=== PATIENT | female | born 1995 | race Caucasian/White ===

== ENCOUNTER 2022-05-19 08:51 | Inpatient (IN) | payer MEDICAID ==
[~2022-05-19] VITALS: Ht 172.7 cm; Wt 85.0 kg
[2022-05-19 09:33] LABS: HEMATOCRIT 38.7 % (36-46); HEMOGLOBIN 13.6 g/dL (12.0-16.0); LYMPHOCYTES # (AUTO) 1.5 K/uL (1.0-4.8); LYMPHOCYTES % (AUTO) 24.9 % (22.0-44.0); MEAN CORPUSCULAR VOLUME 89 fL (80-100); MONOCYTES # (AUTO) 0.4 K/uL (0.1-1.0); MONOCYTES % (AUTO) 7.1 % (2.0-9.0); NEUTROPHILS # (AUTO) 3.8 K/uL (1.8-7.7); PLATELET COUNT (AUTO) 231 K/uL (150-450); RED BLOOD CELL COUNT(AUTO) 4.37 MIL/uL (4.00-5.20); RED CELL DISTRIBUTION WIDTH 12.9 % (11.5-14.5)
[2022-05-19 09:45] LABS: ANION GAP 6 mmol/L (8-16); CALCIUM, TOTAL 9.7 mg/dL (8.8-10.5); CARBON DIOXIDE 28 mmol/L (22-29); CHLORIDE 104 mmol/L (98-107); CREATININE 0.67 mg/dL (0.60-1.30); GLUCOSE,RANDOM 94 mg/dL (70-110); SODIUM SERUM 138 mmol/L (136-145); UREA NITROGEN, BLOOD 6 mg/dL (7-18)
[2022-05-19 09:49] LABS: GLOMERULAR FILTR. RATE CALC > 60 mL/min (>60)
[2022-05-19 09:50] LABS: ALANINE AMINOTRANSFERASE 40 U/L (12-78); ALKALINE PHOSPHATASE 70 U/L (46-116); ASPARTATE AMINOTRANSFERASE 17 U/L (15-37); BILIRUBIN,TOTAL 1.4 mg/dL (0.1-1.0); TOTAL PROTEIN, SERUM 7.9 g/dL (6.4-8.2)
[2022-05-19 11:27] LABS: COVID AG,FIA SOURCE NASAL SWAB
[2022-05-19] MEDS ORDERED: IBUPROFEN 600 MG TABLET PO ONE (11:45)
[2022-05-19] MEDS ORDERED: ZOLPIDEM TARTRATE 10 MG TABLET PO PRN (14:15)
[2022-05-19] MEDS ORDERED: HALOPERIDOL 5 MG TABLET PO PRN (14:15)
[2022-05-19] MEDS: LORazepam 2 MG TABLET PO PRN (14:52)
[2022-05-19 14:55] VITALS: BP 138/84
[2022-05-19 18:05] VITALS: BP 122/78
[2022-05-19] MEDS ORDERED: PNEUMOCOCCAL VACCINE POLYVALENT 0.5 ML VIAL [PPSV23] IM. ONE (18:30)
[2022-05-19] MEDS ORDERED: BENZOCAINE/MENTHOL LOZENGE PO PRN (20:15)
[2022-05-19] MEDS ORDERED: ALBUTEROL SULFATE HFA 90 MCG/PUFF 8 GM INHALER IH PRN (20:15)
[2022-05-19] MEDS ORDERED: LOPERAMIDE HCL 2 MG CAPSULE PO PRN (20:15)
[2022-05-19] MEDS ORDERED: MAG HYDROX/AL HYDROX/SIMETH ES 30 ML SUSPENSION UDCUP PO PRN (20:15)
[2022-05-19] MEDS ORDERED: MAGNESIUM HYDROXIDE SUSPENSION 30 ML UDCUP PO PRN (20:15)
[2022-05-19] MEDS ORDERED: ONDANSETRON HCL 4 MG TABLET PO PRN (20:15)
[2022-05-19] MEDS ORDERED: PETROLATUM,WHITE 28 GM JELLY TP PRN (20:15)
[2022-05-19] MEDS ORDERED: ACETAMINOPHEN 325 MG TABLET PO PRN (20:15)
[2022-05-19] MEDS ORDERED: CloNIDine HCL 0.1 MG TABLET PO PRN (20:15)
[2022-05-19] MEDS ORDERED: BACITRACIN 28 GM OINTMENT TP PRN (20:15)
[2022-05-20 07:24] LABS: APPEARANCE,URINE CLEAR (CLEAR); BILIRUBIN,URINE NEGATIVE (NEGATIVE); GLUCOSE, URINE (UA) NEGATIVE (NEGATIVE); KETONES,URINE NEGATIVE (NEGATIVE); LEUKOCYTE ESTERASE ,URINE TRACE (NEGATIVE); NITRATE,URINE NEGATIVE (NEGATIVE); OCCULT BLOOD,URINE SMALL (NEGATIVE); PROTEIN,URINE NEGATIVE (NEGATIVE); SPECIFIC GRAVITIY, URINE 1.013 (1.003-1.030); UROBILINOGEN,URINE <=1.0 mg/dL (<=1.0)
[2022-05-20 07:25] LABS: AMPHET/METH SCREEN,URINE NEGATIVE (NEGATIVE); BARBITURATE SCREEN, URINE NEGATIVE (NEGATIVE); BENZODIAZEPINES SCREEN,URINE NEGATIVE (NEGATIVE); CANNABINOID SCREEN,URINE NEGATIVE (NEGATIVE); COCAINE SCREEN,URINE NEGATIVE (NEGATIVE); METHADONE SCREEN, URINE NEGATIVE (NEGATIVE); OPIATE SCREEN,URINE NEGATIVE (NEGATIVE)
[2022-05-20 07:41] LABS: PHENCYCLIDINE SCREEN,URINE NEGATIVE (NEGATIVE)
[2022-05-20 07:46] LABS: RBC,URINE 0-2 /HPF (0-2); WBC,URINE 0-2 /HPF (0-5)
[2022-05-20 07:47] LABS: BACTERIA,URINE None Seen /HPF (None Seen)
[2022-05-20 07:48] LABS: SQUAMOUS EPITHELIAL CELL,UR Few /LPF (None Seen)
[2022-05-20 08:34] VITALS: BP 121/83
[2022-05-20] MEDS: DOCUSATE SODIUM 100 MG CAPSULE PO SCH (09:00)
[2022-05-20] MEDS: OMEPRAZOLE 20 MG CAPSULE PO SCH (09:00)
[2022-05-20 16:06] VITALS: BP 128/81
[2022-05-20] MEDS: LORazepam 2 MG TABLET PO PRN (19:55)
[2022-05-20 20:10] VITALS: BP 129/70
[2022-05-20] MEDS: MECLIZINE HCL 25 MG TABLET PO SCH (23:00)
[2022-05-21 00:13] VITALS: BP 127/76
[2022-05-21 08:44] VITALS: BP 137/82
[2022-05-21] MEDS: OMEPRAZOLE 20 MG CAPSULE PO SCH (09:00)
[2022-05-21] MEDS: DOCUSATE SODIUM 100 MG CAPSULE PO SCH (09:00)
[2022-05-21 09:05] LABS: HEMOGLOBIN A1C 4.8 % (3.8-5.6)
[2022-05-21 09:11] LABS: CHOL/HDL RATIO 2.3 (3.9-5.7); THYROID STIMULATING HORMONE 0.76 uIU/mL (0.36-3.74)
[2022-05-21] MEDS: IBUPROFEN 600 MG TABLET PO PRN (13:50)
[2022-05-21 16:15] VITALS: BP 129/80
[2022-05-21] MEDS: MECLIZINE HCL 25 MG TABLET PO SCH (20:08)
[2022-05-21 20:27] VITALS: BP 122/77
[2022-05-21] MEDS ORDERED: MECLIZINE HCL 25 MG TABLET PO SCH (21:00)
[2022-05-22 00:03] VITALS: BP 134/90
[2022-05-22] MEDS: OMEPRAZOLE 20 MG CAPSULE PO SCH (09:00)
[2022-05-22] MEDS: DOCUSATE SODIUM 100 MG CAPSULE PO SCH (09:00)
[2022-05-22 09:12] VITALS: BP 129/82
[2022-05-22] MEDS: LORazepam 2 MG TABLET PO PRN (09:19)
[2022-05-22] MEDS: RisperiDONE 1 MG TABLET PO SCH ×2 (09:19→16:17)
[2022-05-22 16:10] VITALS: BP 136/81
[2022-05-22] MEDS: IBUPROFEN 600 MG TABLET PO PRN (16:17)
[2022-05-22] MEDS: MECLIZINE HCL 25 MG TABLET PO SCH (20:19)
[2022-05-22] MEDS ORDERED: LORazepam 2 MG/ML VIAL IM ONE (23:15)
[2022-05-22] MEDS ORDERED: HALOPERIDOL LACTATE 5 MG/ML VIAL IM ONE (23:15)
[2022-05-22] MEDS ORDERED: DiphenhydrAMINE HCL 50 MG/ML VIAL IM ONE (23:15)
[2022-05-23 08:23] VITALS: BP 119/71
[2022-05-23] MEDS: DIVALPROEX SODIUM 500 MG DR TABLET PO SCH ×2 (08:55→20:16)
[2022-05-23] MEDS: LITHIUM CARBONATE 300 MG CAPSULE PO SCH ×2 (08:55→20:16)
[2022-05-23] MEDS: RisperiDONE 2 MG TABLET PO SCH ×2 (08:55→16:18)
[2022-05-23] MEDS: OMEPRAZOLE 20 MG CAPSULE PO SCH (09:00)
[2022-05-23] MEDS: DOCUSATE SODIUM 100 MG CAPSULE PO SCH (09:00)
[2022-05-23 16:03] VITALS: BP 110/70
[2022-05-23 20:43] VITALS: BP 119/73
[2022-05-24] MEDS: IBUPROFEN 600 MG TABLET PO PRN (08:00)
[2022-05-24] MEDS: LITHIUM CARBONATE 300 MG CAPSULE PO SCH ×2 (08:00→08:54)
[2022-05-24 08:16] VITALS: BP 118/76
[2022-05-24] MEDS: DIVALPROEX SODIUM 500 MG DR TABLET PO SCH ×2 (08:54→21:21)
[2022-05-24] MEDS: DOCUSATE SODIUM 100 MG CAPSULE PO SCH (09:00)
[2022-05-24] MEDS: OMEPRAZOLE 20 MG CAPSULE PO SCH (09:00)
[2022-05-24] MEDS: RisperiDONE 2 MG TABLET PO SCH ×2 (09:03→16:52)
[2022-05-24 16:09] VITALS: BP 143/89
[2022-05-24] MEDS: LORazepam 2 MG TABLET PO PRN (19:46)
[2022-05-25 06:34] LABS: COVID AG,FIA SOURCE NASAL SWAB
[2022-05-25] MEDS: LITHIUM CARBONATE 300 MG CAPSULE PO SCH (07:57)
[2022-05-25] MEDS: DOCUSATE SODIUM 100 MG CAPSULE PO SCH (07:57)
[2022-05-25] MEDS: OMEPRAZOLE 20 MG CAPSULE PO SCH (07:57)
[2022-05-25] MEDS: RisperiDONE 2 MG TABLET PO SCH ×2 (07:57→17:00)
[2022-05-25] MEDS: DIVALPROEX SODIUM 500 MG DR TABLET PO SCH (07:57)
[2022-05-25 08:37] VITALS: BP 128/82
[2022-05-25] MEDS: IBUPROFEN 600 MG TABLET PO PRN (13:39)
[2022-05-25 16:13] VITALS: BP 105/67
[2022-05-25] MEDS ORDERED: LITH300C3 PO (18:46)
[2022-05-25] MEDS ORDERED: RISP2TAB86 PO (18:46)
[2022-05-25] MEDS ORDERED: DIVA-112 PO (18:46)
== END 2022-05-25 19:30 | disposition home or self-care (01) | DRG 750 ==
LOC: EMS 08:53 → 3EC 11:55
PROVIDERS: ADMIT Psychiatry & Neurology Psychiatry; ATTEND Psychiatry & Neurology Psychiatry
DX: F25.9 Schizoaffective disorder, unspecified (principal); R45.851 Suicidal ideations; F32.A Depression, unspecified; F41.9 Anxiety disorder, unspecified; G47.00 Insomnia, unspecified; S61.511A Laceration without foreign body of right wrist, initial encounter; Z20.822 Contact with and (suspected) exposure to COVID-19; X78.0XXA Intentional self-harm by sharp glass, initial encounter; Y93.89 Activity, other specified; Y92.89 Other specified places as the place of occurrence of the external cause; Y99.8 Other external cause status; Z79.899 Other long term (current) drug therapy
CPT/HCPCS: 80053; 80061; 80307; 81001; 83036; 84443; 84703; 85025; 87081; 90732; 99285; G0480; J1200; J1630; J2060

== ENCOUNTER 2023-06-03 10:27 | Emergency (ER) | payer MEDICAID, OTHER ==
[~2023-06-03] VITALS: Ht 172.7 cm; Wt 93.0 kg
[~2023-06-03 10:27] MED LIST: DIVA-112 PO; LITH300C3 PO; RISP2TAB86 PO
[2023-06-03 11:04] LABS: BASOPHILS % (AUTO) 0.3 % (0.0-2.0); HEMATOCRIT 35.2 % (36-46); HEMOGLOBIN 11.7 g/dL (12.0-16.0); LYMPHOCYTES # (AUTO) 1.9 K/uL (1.0-4.8); LYMPHOCYTES % (AUTO) 15.5 % (22.0-44.0); MEAN CORPUSCULAR HEMOGLOBIN 29.2 pg (26.0-34.0); MEAN CORPUSCULAR HGB CONC 33.2 G/dL (31.0-37.0); MEAN CORPUSCULAR VOLUME 88 fL (80-100); MONOCYTES # (AUTO) 0.8 K/uL (0.1-1.0); MONOCYTES % (AUTO) 6.2 % (2.0-9.0); NEUTROPHILS # (AUTO) 9.5 K/uL (1.8-7.7); PLATELET COUNT (AUTO) 243 K/uL (150-450); RED BLOOD CELL COUNT(AUTO) 4.01 MIL/uL (4.00-5.20)
[2023-06-03 11:09] LABS: APPEARANCE,URINE CLEAR (CLEAR); BILIRUBIN,URINE NEGATIVE (NEGATIVE); GLUCOSE, URINE (UA) NEGATIVE (NEGATIVE); KETONES,URINE NEGATIVE (NEGATIVE); LEUKOCYTE ESTERASE ,URINE NEGATIVE (NEGATIVE); NITRATE,URINE NEGATIVE (NEGATIVE); OCCULT BLOOD,URINE NEGATIVE (NEGATIVE); PROTEIN,URINE NEGATIVE (NEGATIVE); SPECIFIC GRAVITIY, URINE 1.011 (1.003-1.030); UROBILINOGEN,URINE <=1.0 mg/dL (<=1.0)
[2023-06-03] MEDS ORDERED: SODIUM CHLORIDE 0.9% 1,000 ML IV ONE (11:15)
[2023-06-03 11:17] LABS: ANION GAP 14 mmol/L (8-16); CALCIUM, TOTAL 8.6 mg/dL (8.8-10.5); CARBON DIOXIDE 24 mmol/L (22-29); CHLORIDE 101 mmol/L (98-107); CREATININE 0.47 mg/dL (0.60-1.30); GLOMERULAR FILTR. RATE CALC > 60 mL/min (>60); GLUCOSE,RANDOM 79 mg/dL (70-110); POTASSIUM 3.9 mmol/L (3.5-5.1); SODIUM SERUM 139 mmol/L (136-145)
[2023-06-03 11:30] LABS: ALANINE AMINOTRANSFERASE 22 U/L (12-78); ALKALINE PHOSPHATASE 59 U/L (46-116); ASPARTATE AMINOTRANSFERASE 13 U/L (15-37); BILIRUBIN,TOTAL 0.9 mg/dL (0.1-1.0); HCG,QUANTITATIVE 268 mIU/mL (0-6); TOTAL PROTEIN, SERUM 7.1 g/dL (6.4-8.2)
[2023-06-03 11:31] LABS: VALPROIC ACID < 3 mcg/mL (50-100)
[2023-06-03 11:49] LABS: LITHIUM < 0.20 mmol/L (0.60-1.20)
[2023-06-03 12:18] VITALS: TEMP 98.5
[2023-06-03 12:20] VITALS: BP 118/66; PULSE 64; RESP 16
== END 2023-06-03 13:38 | disposition home or self-care (01) ==
LOC: EMS 10:41
DX: O26.892 Other specified pregnancy related conditions, second trimester (principal); R42 Dizziness and giddiness; Z98.890 Other specified postprocedural states; Z3A.27 27 weeks gestation of pregnancy
CPT/HCPCS: 99284; 96360; 76805; 80053; 80164; 80178; 81003; 84484; 84702; 85025; 86901; 36415; 93005; J7030